=== PATIENT | female | born 1990 | race Two or more races ===

== ENCOUNTER 2024-02-05 06:27 | Outpatient (CLI) | payer OTHER ==
[2024-02-05 07:15] LABS: HEMATOCRIT 37.3 % (36.0-45.00); HEMOGLOBIN 12.3 g/dL (12.0-15.00); MEAN CELL VOLUME 79.7 fL (80.00-100.00); MEAN CORPUSCULAR HEMOGLOBIN 26.2 pg (27.00-32.0); MEAN CORPUSCULAR HGB CONC 32.9 g/dl (32.0-36.0); PLATELET COUNT 319 K/uL (150-450); RED BLOOD COUNT 4.68 M/uL (4.00-6.00); RED CELL DISTRIBUTION WIDTH 15.7 % (11.5-14.5)
[2024-02-05 07:54] LABS: PH,URINE 6.5 (5.0-8.0); URINE APPEARANCE Clear; URINE BILIRRUBIN Negative (NEGATIVE); URINE BLOOD Negative; URINE COLOR Yellow; URINE GLUCOSE Negative (NEGATIVE); URINE KETONE Negative (NEGATIVE); URINE LEUKOCYTE Negative; URINE NITRATE Negative; URINE PROTEIN Negative (NEGATIVE); URINE UROBILINOGEN 0.2 E.U./dl
[2024-02-05 07:58] LABS: URINE BACTERIA 69.2 uL (0.0-1933); URINE EPITHELIAL CELLS 12.9 uL (0.0-38.8); URINE RBC 4.1 uL (0.0-20.8); URINE WBC 3.2 uL (0.0-23.2)
[2024-02-05 08:36] LABS: CHOL HDL RATIO 1.9 (0-5.0); T4 FREE 1.02 NG/ML (0.76-1.46); TSH 1.99 uIU/mL (0.358-3.74)
== END 2024-02-05 06:32 | disposition home or self-care (01) ==
LOC: LAB 06:27
DX: R73.9 Hyperglycemia, unspecified (principal); E55.9 Vitamin D deficiency, unspecified; Z13.228 Encounter for screening for other metabolic disorders; D50.8 Other iron deficiency anemias

== ENCOUNTER 2024-02-05 07:16 | Outpatient (CLI) | payer OTHER | END 2024-02-05 07:27 | disposition home or self-care (01) | LOC: SONOGRAMA 07:16 | DX: M67.449 Ganglion, unspecified hand (principal) ==

== ENCOUNTER 2024-07-23 11:39 | Outpatient (CLI) | payer OTHER | END 2024-07-23 11:44 | disposition home or self-care (01) | LOC: RAD 11:39 | DX: M54.6 Pain in thoracic spine (principal); M54.51 Vertebrogenic low back pain ==

== ENCOUNTER → 2024-07-23 12:13 | Outpatient (CLI) | payer OTHER | END | disposition home or self-care (01) | LOC: LAB 12:13 | DX: E55.9 Vitamin D deficiency, unspecified (principal); D50.8 Other iron deficiency anemias ==

== ENCOUNTER 2024-08-13 07:31 | Outpatient (CLI) | payer OTHER | END 2024-08-13 07:41 | disposition home or self-care (01) | LOC: TOM 07:31 | DX: R19.4 Change in bowel habit (principal) ==